=== PATIENT | female | born 1980 ===

== ENCOUNTER 2017-06-20 05:59 | Day surgery (SDC) | payer OTHER ==
[2017-05-17 13:46] VITALS: BMI 28.3
[2017-06-20] MEDS ORDERED: Bupivacaine-Epi 0.25%-1:200,000 PF Inj ONE (07:29)
[2017-06-20] MEDS ORDERED: ceFAZolin IV 2 gm in Dextrose 1 GM/50 ML BAG IVPB ONE (07:29)
[2017-06-20] MEDS ORDERED: Lidocaine 1% Inj (20ml) ONE (07:29)
[2017-06-20] MEDS ORDERED: Lactated Ringer's 1,000 ML IV ONE (08:07)
[2017-06-20] MEDS: HYDROmorphone 0.5 mg/0.5 ml ISec IVP PRN ×2 (10:22→10:55)
[2017-06-20] MEDS ORDERED: Oxycodone/Acetaminophen 5/325 mg Tab PO ONE (10:31)
--- NOTE | 2017-06-20 10:38 | PCM.SURG1 ---
Surgeon's Initial Post Op Note - Surgeon's Notes Surgeon: Julien Tile Power Shear Operator: PGY4, Devang HARPNA Type of Anesthesia: General Endo Pre-Operative Diagnosis: Umbilical hernia Operative Findings: Umbilical hernia Post-Operative Diagnosis: Umbilical hernia Operation Performed: Robotic assisted lap umbilical hernia repair with mesh Specimen/Specimens Removed: Hernia sac and contents Estimated Blood Loss: EBL {In ML}: 20 Blood Products Given: N/A Drains Used: No Drains Post-Op Condition: Good Date of Surgery/Procedure: 06/20/17 Time of Surgery/Procedure: 08:00
[2017-06-20 12:25] VITALS: BP 109/70; PULSE 68; RESP 18; TEMP 97.2; O2SAT 100
[2017-06-20] MEDS ORDERED: Acetaminophen-Codeine 300/30 mg Tab PO ONE (12:28)
--- NOTE | 2017-06-20 23:31 | OP ---
PROCEDURE DATE: 06/20/2017 PREOPERATIVE DIAGNOSIS: Umbilical hernia. POSTOPERATIVE DIAGNOSIS: Umbilical hernia. PROCEDURE: Robotic umbilical hernia repair with the mesh. SURGEON: Mic Victoria M.D. BACK FACER: MANPREET Funk and Elmer Pathak, PGY-4 resident. TYPE OF ANESTHESIA: General endotracheal tube anesthesia. ESTIMATED BLOOD LOSS: Around 10 mL. DRAINS: None. PATHOLOGY: Umbilical hernia with sac and content was sent for pathology. COMPLICATIONS: None. INTRAOPERATIVE FINDINGS: The patient had 2 x 2 cm umbilical hernia. DESCRIPTION OF PROCEDURE: On intraoperative steps, this 37-year-old female was diagnosed with umbilical hernia and the patient was consented for the robotic umbilical hernia repair with the mesh, brought to OR, placed supine on operating table. After induction of the anesthesia, abdomen was prepped and draped in usual sterile fashion. A left upper quadrant incision was made by using the Visiport technique. Peritoneal cavity was entered, pneumo was created. Three 8 mm robotic ports were placed in the left flank and the upper quadrant and the left lower quadrant and robot was brought in. Camera arm as well as arm 1 and arm 2 were docked, Umbilical hernial sac and content was reduced and defect was repaired with #1 Prolene V-Loc suture and 9 cm circular mesh was implanted after proper implantation of the mesh. The middle part of the mesh was tacked with a tacker, and the specimen was sent to the table for the pathology. All the instruments were taken out and the robot was undocked. All the ports were taken out under vision. Pneumo was deflated. All the incision sites were closed in one layer with 4-0 Monocryl and dry sterile dressing was applied. Patient tolerated procedure well. Count of the instruments was correct. There was no apparent complications. Mic Victoria MD JIMMY
[2017-06-21] MEDS ORDERED: Acetaminophen-Codeine 300/30 mg Tab PO STA (17:40)
== END 2017-06-20 13:30 | disposition home or self-care (01) ==
LOC: C.SDS 05:59
PROVIDERS: ATTEND Surgery Surgical Critical Care
DX: K42.9 Umbilical hernia without obstruction or gangrene (principal); F32.9 Major depressive disorder, single episode, unspecified; K60.2 Anal fissure, unspecified; R10.9 Unspecified abdominal pain; D17.5 Benign lipomatous neoplasm of intra-abdominal organs
CPT/HCPCS: 49652; 88302; J0690; J1170; J7120

== ENCOUNTER 2017-10-04 16:15 | Emergency (ER) | payer OTHER ==
[2017-10-04 16:16] VITALS: BMI 28.3
[2017-10-04 16:36] VITALS: BP 114/70; PULSE 75; RESP 20; TEMP 97.7; O2SAT 97
--- NOTE | 2017-10-04 16:57 | C.PDOC ---
History Of Present Illness 37 year old female presents to the ED for evaluation of sore throat and nonproductive cough which began 1 week ago. Patient denies fever and has no other associated symptoms at this time. 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 NO FEVER OTHER ASSOC SX EXAM NEG Time Seen by Provider: 10/04/17 16:43 Chief Complaint (Nursing): Cough, Cold, Congestion History Per: Patient History/Exam Limitations: no limitations Onset/Duration Of Symptoms: Days (1 week ) Current Symptoms Are (Timing): Still Present Location Of Pain: Throat Sick Contacts (Context): None Associated Symptoms: Sore Throat, Cough. denies: Fever, Chills, Sputum Ear Symptoms: Bilateral: None Additional History Per: Patient Past Medical History Reviewed: Historical Data, Nursing Documentation, Vital Signs Vital Signs: Last Vital Signs Temp 97.7 F 10/04/17 16:34 Pulse 75 10/04/17 16:34 Resp 20 10/04/17 16:34 BP 114/70 10/04/17 16:34 Pulse Ox 97 10/04/17 18:02 - Medical History PMH: Anxiety, Depression Surgical History: No Surg Hx - [facility] Procedures CLOSURE SKIN & SUBCUTANEOUS NEC (05/26/15) Family History: States: Unknown Family Hx - Social History Hx Tobacco Use: No Hx Alcohol Use: Yes Hx Substance Use: No - Immunization History Hx Tetanus Toxoid Vaccination: Yes Hx Influenza Vaccination: No Hx Pneumococcal Vaccination: No Review Of Systems Constitutional: Positive for: Fever ENT: Positive for: Throat Pain Respiratory: Positive for: Cough. Negative for: Sputum Physical Exam - Physical Exam Appears: Non-toxic, No Acute Distress Skin: Normal Color, Warm, Dry Head: Atraumatic, Normacephalic Eye(s): bilateral: Normal Inspection Ear(s): Bilateral: Normal Nose: Normal, No Discharge Oral Mucosa: Moist Throat: Normal, No Erythema, No Exudate Neck: Supple Chest: Symmetrical, No Deformity, No Tenderness Cardiovascular: Rhythm Regular, No Murmur Respiratory: Normal Breath Sounds, No Rales, No Rhonchi, No Wheezing Extremity: Normal ROM, Capillary Refill (less than 2 seconds ) Neurological/Psych: Oriented x3, Normal Speech, Normal Cognition Gait: Steady ED Course And Treatment O2 Sat by Pulse Oximetry: 97 Disposition Counseled Patient/Family Regarding: Diagnosis, Need For Followup, Rx Given - Disposition Referrals: YOUR,PMD [Other] Disposition: HOME/ ROUTINE Disposition Time: 16:56 Condition: GOOD Prescriptions: Benzonatate [Tessalon Perles] 200 mg PO TID PRN #15 sgl PRN Reason: Cough Instructions: Upper Respiratory Infection (ED) Forms: Lulu (Nepali) - Clinical Impression Clinical Impression: Upper respiratory infection - Scribe Statement The provider has reviewed the documentation as recorded by the Scribe (Sharee Wells) Provider Attestation: All medical record entries made by the Scribe were at my direction and personally dictated by me. I have reviewed the chart and agree that the record accurately reflects my personal performance of the history, physical exam, medical decision making, and the department course for this patient. I have also personally directed, reviewed, and agree with the discharge instructions and disposition.
== END 2017-10-04 17:18 | disposition home or self-care (01) ==
LOC: C.ER 16:15
DX: J06.9 Acute upper respiratory infection, unspecified (principal)

== ENCOUNTER 2017-10-08 17:31 | Emergency (ER) | payer OTHER ==
[2017-10-08 17:31] VITALS: BMI 28.3
--- NOTE | 2017-10-08 19:17 | C.PDOC ---
History Of Present Illness Ivon Raza is a 37 y/o female who presents to the ER complaining of a cough and myalgias for 10 days. Pt developed bilateral ear pain for the past 2-3 days. Patient also reports having tactile fever. No abdominal pain, nausea, vomiting, or diarrhea. No shortness of breath. Time Seen by Provider: 10/08/17 18:15 Chief Complaint (Nursing): Cough, Cold, Congestion History Per: Patient History/Exam Limitations: no limitations Onset/Duration Of Symptoms: Days (x 3) Current Symptoms Are (Timing): Still Present Past Medical History Reviewed: Historical Data, Nursing Documentation, Vital Signs Vital Signs: Last Vital Signs Temp 97.8 F 10/08/17 19:28 Pulse 70 10/08/17 19:28 Resp 20 10/08/17 19:28 BP 100/73 10/08/17 19:28 Pulse Ox 97 10/09/17 17:24 - Medical History PMH: Anxiety, Depression Surgical History: Hernia Repair Other Surgeries: Bladder sling, liposuction - [facility] Procedures CLOSURE SKIN & SUBCUTANEOUS NEC (05/26/15) Family History: States: Unknown Family Hx - Social History Hx Tobacco Use: No Hx Alcohol Use: Yes Hx Substance Use: No - Immunization History Hx Tetanus Toxoid Vaccination: (unk) Hx Influenza Vaccination: No Hx Pneumococcal Vaccination: (unk) Review Of Systems Constitutional: Positive for: Fever (tactile), Other (myalgia) ENT: Positive for: Ear Pain (B/L) Respiratory: Positive for: Cough. Negative for: Shortness of Breath Gastrointestinal: Negative for: Nausea, Vomiting, Abdominal Pain, Diarrhea Physical Exam - Physical Exam Appears: Non-toxic, No Acute Distress Skin: Normal Color, Warm, Dry Head: Atraumatic, Normacephalic Eye(s): bilateral: Normal Inspection, PERRL, EOMI Ear(s): Bilateral: TM Erythema Nose: No Discharge Oral Mucosa: Moist Throat: No Erythema, No Exudate Neck: Normal ROM, Supple Cardiovascular: Rhythm Regular, No Murmur Respiratory: Normal Breath Sounds, No Wheezing Gastrointestinal/Abdominal: Soft, No Tenderness Neurological/Psych: Oriented x3, Normal Speech, Normal Cognition ED Course And Treatment O2 Sat by Pulse Oximetry: 97 (RA) Pulse Ox Interpretation: Normal Medical Decision Making Medical Decision Making: Initial Plan: POC urine Motrin 600 mg PO Impression: Cough, myalgia, x 10 days with ear pain bilateral for last few days. with tactile fever. Will d/c with amoxicillin Disposition Counseled Patient/Family Regarding: Diagnosis, Need For Followup, Rx Given - Disposition Referrals: [facility] [Outside] Disposition: HOME/ ROUTINE Disposition Time: 19:18 Condition: STABLE Additional Instructions: [place] ibuprofeno para el dolor, john en el cuerpo, dolor de odos. [place] los antiboitcs melodie fueron recetados. Seguimiento en la clnica mdica la prxima semana. Sentinel llevar probablemente al menos otra semana hasta que se resuelva. Prescriptions: Amoxicillin [Amoxil 500 mg Cap] 500 mg PO TID #21 cap Instructions: Otitis Media (ED) Forms: [employer]erbee (Georgian) Print Language: GEORGIAN - Clinical Impression Clinical Impression: Otitis media, Upper respiratory infection - PA / TELEPHONE PLANT POWER OPERATOR / Resident Statement MD/DO has reviewed & agrees with the documentation as recorded. - Scribe Statement The provider has reviewed the documentation as recorded by the Scribe (Cary Shepard) All medical record entries made by the Scribe were at my direction and personally dictated by me. I have reviewed the chart and agree that the record accurately reflects my personal performance of the history, physical exam, medical decision making, and the department course for this patient. I have also personally directed, reviewed, and agree with the discharge instructions and disposition.
[2017-10-08 19:29] VITALS: BP 100/73; PULSE 70; RESP 20; TEMP 97.8
[2017-10-09 17:19] VITALS: O2SAT 97
== END 2017-10-08 19:29 | disposition home or self-care (01) ==
LOC: C.ER 17:31
DX: J06.9 Acute upper respiratory infection, unspecified (principal); H66.90 Otitis media, unspecified, unspecified ear

== ENCOUNTER 2017-11-07 05:53 | Day surgery (SDC) | payer OTHER ==
[2017-11-07] MEDS ORDERED: Midazolam 2 MG/2 ML VIAL ONE (09:04)
[2017-11-07] MEDS ORDERED: Propofol 10 mg/ml Inj (20 ML) ONE (09:05)
[2017-11-07] MEDS ORDERED: Lidocaine Hydrochloride 5 ML INJ ONE (09:12)
[2017-11-07 09:32] VITALS: RESP 16; O2SAT 100
[2017-11-07 10:00] VITALS: BP 119/76; PULSE 60; TEMP 98.3
== END 2017-11-07 11:30 | disposition home or self-care (01) ==
LOC: C.ENDO 05:53
PROVIDERS: ATTEND Internal Medicine
DX: K21.9 Gastro-esophageal reflux disease without esophagitis (principal); K29.50 Unspecified chronic gastritis without bleeding; K44.9 Diaphragmatic hernia without obstruction or gangrene; B96.81 Helicobacter pylori [H. pylori] as the cause of diseases classified elsewhere
CPT/HCPCS: 43239; 84703; 88305; J2250; J2704

== ENCOUNTER 2017-11-14 09:15 | Day surgery (SDC) | payer OTHER ==
[2017-11-10 14:02] VITALS: BMI 31.1
[~2017-11-14 09:15] MED LIST: Lidocaine 1%/Epinephrine 1:100000 30 ml vial IJ ONE
[2017-11-14] MEDS ORDERED: Lactated Ringer's 1,000 ML IV ONE ×2 (13:25)
[2017-11-14] MEDS ORDERED: Bupivacaine HCl 0.25% PF (10 ml) Inj ONE (15:56)
[2017-11-14] MEDS ORDERED: Midazolam 2 MG/2 ML VIAL ONE (16:18)
[2017-11-14] MEDS ORDERED: Propofol 10 mg/ml Inj (20 ML) ONE (16:19)
[2017-11-14] MEDS ORDERED: Succinylcholine Chloride 20 mg/ml Syr (5 ml) IV ONE (16:22)
[2017-11-14] MEDS ORDERED: ceFAZolin IV 2 gm in Dextrose 2 GM/50 ML BAG IVPB ONE (16:22)
[2017-11-14] MEDS ORDERED: Rocuronium 10 mg/ml (5 ml) ONE (16:22)
[2017-11-14] MEDS ORDERED: Neostigmine Methylsulfate 3mg/3ml Syringe IV ONE (16:59)
[2017-11-14] MEDS ORDERED: Morphine 4 MG/ML VIAL ONE (17:19)
[2017-11-14] MEDS ORDERED: Oxycodone/Acetaminophen 5/325 mg Tab PO PRN (18:05)
--- NOTE | 2017-11-14 18:05 | PCM.SURG1 ---
Surgeon's Initial Post Op Note - Surgeon's Notes Surgeon: Dr. Victoria Computer Systems Architect: Mark PGY1 Type of Anesthesia: General Endo Anesthesia Administered By: Dr. Moreira Pre-Operative Diagnosis: Three column Hemorroids, anal fissure Operative Findings: see operative report Post-Operative Diagnosis: Three column Hemorroids, anal fissure Operation Performed: Three column Hemorroidectomy, fissurectomy, and internal scphincterotomy Specimen/Specimens Removed: three column hemmorhoids Estimated Blood Loss: EBL {In ML}: 50 Blood Products Given: N/A Drains Used: No Drains Post-Op Condition: Good Date of Surgery/Procedure: 11/14/17 Time of Surgery/Procedure: 16:00
[2017-11-14 18:55] VITALS: O2SAT 100
[2017-11-14 20:39] VITALS: BP 123/76; PULSE 97; RESP 13; TEMP 98.5
--- NOTE | 2017-11-15 08:45 | OP ---
PROCEDURE DATE: 11/14/2017 PREOPERATIVE DIAGNOSES: 1. Anal fissure posteriorly. 2. Grade 3 bleeding hemorrhoid. POSTOPERATIVE DIAGNOSES: Grade 3 bleeding hemorrhoid of left lateral, right anterior and right posterior and anal fissure. PROCEDURE: 1. The three-column hemorrhoidectomy. 2. Fissurectomy. 3. Internal sphincterotomy. SURGEON: The procedure was done by Mic carballo MD. SOLVENT PLANT TREATER: Kuldeep Sauer, PGY-1 resident and CARYN Funk. TYPE OF ANESTHESIA: General endotracheal tube anesthesia. ESTIMATED BLOOD LOSS: Around 50 mL. DRAIN: None. PATHOLOGY: The left lateral, right anterior and right posterior hemorrhoid were sent for the pathology. COMPLICATIONS: None. INTRAOPERATIVE FINDINGS: The patient had large left lateral and right anterior and right posterior hemorrhoids and the patient also had redundant skin that was excised. DESCRIPTION OF PROCEDURE: On intraoperative steps, this is a 37-year-old female who was diagnosed with grade 3 hemorrhoid with on and off bleeding and the patient also has a posterior anal fissure and the patient was consented for the hemorrhoidectomy and fissurectomy with internal sphincterotomy. Brought to the OR, placed supine on the patient's bed. After induction of the anesthesia, the patient was placed in a prone Jackknife position and examination under anesthesia was done. The patient was found to have a posterior anal fissure and the patient also had large left lateral as well as right anterior and right posterior hemorrhoid and there was a grade 2 left anterior hemorrhoid and elliptical incision was made surrounding the left lateral and the right anterior hemorrhoid and the both hemorrhoids were excised together and the pedicle was ligated with the 0 Vicryl and the mucosa was approximated with a 2-0 Vicryl sutures and now an elliptical incision was made surrounding the right posterior hemorrhoid and the hemorrhoid was completely excised, pedicle was ligated and wound was closed with 0 Vicryl. The internal sphincter was ligated on the right lateral side and fissure was excised with the posterior hemorrhoid and the wound was closed. Dry sterile dressing was applied. The packing was placed and the local anesthesia was injected. The patient tolerated the procedure well. Count of the instruments and gauze was correct. There was no apparent complication. The patient was extubated in the OR and sent to the Postanesthesia Care Unit in stable condition. Mic Victoria MD [facility] # [id number]
== END 2017-11-14 21:00 | disposition home or self-care (01) ==
LOC: C.SDS 09:15
PROVIDERS: ATTEND Surgery Surgical Critical Care
DX: K60.2 Anal fissure, unspecified (principal); K64.2 Third degree hemorrhoids
CPT/HCPCS: 46261; J0690; J1100; J1170; J2001; J2250; J2270; J2405; J2704; J2710; J3010; J7120

== ENCOUNTER 2018-06-17 13:37 | Emergency (ER) | payer OTHER ==
[2018-06-17 13:37] VITALS: BMI 31.1
[2018-06-17 14:45] LABS: SQUAMOUS EPITHIAL 3 /hpf (0-5); URINE BACTERIA RARE (<OCC); URINE BILIRUBIN NEGATIVE (NEGATIVE); URINE BLOOD NEGATIVE (NEGATIVE); URINE CLARITY Clear (Clear); URINE COLOR Yellow (YELLOW); URINE GLUCOSE (UA) NORMAL (Normal); URINE LEUKOCYTE ESTERASE NEG Leu/uL (Negative); URINE PROTEIN NEGATIVE (NEGATIVE); URINE UROBILINOGEN NORMAL mg/dL (0.2-1.0)
[2018-06-17 15:11] VITALS: BP 111/74; PULSE 76; RESP 18; TEMP 98.5; O2SAT 99
--- NOTE | 2018-06-17 15:21 | C.PDOC ---
Chief Complaint (Nursing): Abdominal Pain Past Medical History Vital Signs: Last Vital Signs Temp 98.5 F 06/17/18 15:10 Pulse 76 06/17/18 15:10 Resp 18 06/17/18 15:10 BP 111/74 06/17/18 15:10 Pulse Ox 99 06/17/18 15:10 - Medical History PMH: Anxiety, Depression Denies: Chronic Kidney Disease Surgical History: Endoscopy, Hernia Repair - [facility] Procedures CLOSURE SKIN & SUBCUTANEOUS NEC (05/26/15) Family History: States: Unknown Family Hx - Social History Hx Tobacco Use: No Hx Alcohol Use: Yes Hx Substance Use: No - Immunization History Hx Tetanus Toxoid Vaccination: (unk) Hx Influenza Vaccination: No Hx Pneumococcal Vaccination: (unk) ED Course And Treatment O2 Sat by Pulse Oximetry: 99 Disposition Counseled Patient/Family Regarding: Studies Performed, Diagnosis, Need For Followup - Disposition Disposition: HOME/ ROUTINE Disposition Time: 15:17 Condition: GOOD Additional Instructions: Por favor, sami un seguimiento con live mdico de atencin primaria y con live ginec logo la prxima semana. Supriya ms lquidos y coma alimentos suaves. Regrese a la anne de emergencias por cualquier sntoma peor. Forms: Gen Discharge Inst Vatican Citizen, [facility] ([place] Citizen) - Clinical Impression Clinical Impression: Gastroenteritis
--- NOTE | 2018-06-17 15:24 | C.PDOC ---
History Of Present Illness 38 year old female comes in with daughter to the ER as a patient with multiple complaints. She complains of nausea, vomiting, and soft stool since 2 days ago. Last vomiting episode was yesterday. Patient also complains of abdominal pain and dysuria but denies any fever, chills, or back pain. She currently does not feel nauseous and is tolerating PO. LMP was April; however, it only lasted a day. pt concerned she may be . Chief Complaint (Nursing): Abdominal Pain History Per: Patient History/Exam Limitations: no limitations Onset/Duration Of Symptoms: Days Current Symptoms Are (Timing): Still Present Past Medical History Reviewed: Historical Data, Nursing Documentation, Vital Signs Vital Signs: Last Vital Signs Temp 98.5 F 06/17/18 15:10 Pulse 76 06/17/18 15:10 Resp 18 06/17/18 15:10 BP 111/74 06/17/18 15:10 Pulse Ox 99 06/17/18 21:44 - Medical History PMH: Anxiety, Depression Denies: Chronic Kidney Disease Surgical History: Endoscopy, Hernia Repair - [facility] Procedures CLOSURE SKIN & SUBCUTANEOUS NEC (05/26/15) Family History: States: No Known Family Hx - Social History Hx Tobacco Use: No Hx Alcohol Use: Yes Hx Substance Use: No - Immunization History Hx Tetanus Toxoid Vaccination: (unk) Hx Influenza Vaccination: No Hx Pneumococcal Vaccination: (unk) Review Of Systems Constitutional: Negative for: Fever, Chills Cardiovascular: Negative for: Chest Pain Respiratory: Negative for: Shortness of Breath Gastrointestinal: Positive for: Nausea, Vomiting, Abdominal Pain, Other (Soft stool) Genitourinary: Positive for: Dysuria Musculoskeletal: Negative for: Back Pain Neurological: Negative for: Weakness, Numbness Physical Exam - Physical Exam Appears: Well, Non-toxic, No Acute Distress Skin: Warm, Dry Head: Atraumatic, Normacephalic Eye(s): bilateral: Normal Inspection Oral Mucosa: Moist Neck: Supple Chest: No Deformity, No Tenderness Cardiovascular: Rhythm Regular, No Murmur Respiratory: Normal Breath Sounds, No Rales, No Rhonchi, No Wheezing Gastrointestinal/Abdominal: Bowel Sounds, Soft, No Tenderness, No Distention, No Guarding, No Rebound Back: No CVA Tenderness Neurological/Psych: Oriented x3, Normal Speech ED Course And Treatment O2 Sat by Pulse Oximetry: 99 (RA) Pulse Ox Interpretation: Normal Medical Decision Making Medical Decision Making: Plan: -Urinalysis -Urine Disposition - Disposition Disposition: HOME/ ROUTINE Disposition Time: 15:25 Condition: GOOD Additional Instructions: Por favor, sami un seguimiento con live mdico de atencin primaria y con live ginec logo la prxima semana. Supriya ms lquidos y coma alimentos suaves. Regrese a la anne de emergencias por cualquier sntoma peor. Instructions: Gastroenteritis (DC) Forms: Gen Discharge Inst Gibraltarian, [employer] (Gibraltarian) Print Language: TAJIK - Clinical Impression Clinical Impression: Gastroenteritis - PA / BUNCH MAKER / Resident Statement MD/DO has reviewed & agrees with the documentation as recorded. - Scribe Statement The provider has reviewed the documentation as recorded by the Scribe Maria Guadalupe Gibbons All medical record entries made by the Scribe were at my direction and personally dictated by me. I have reviewed the chart and agree that the record accurately reflects my personal performance of the history, physical exam, medical decision making, and the department course for this patient. I have also personally directed, reviewed, and agree with the discharge instructions and disposition.
== END 2018-06-17 15:29 | disposition home or self-care (01) ==
LOC: C.ER 13:37
DX: K52.9 Noninfective gastroenteritis and colitis, unspecified (principal)

== ENCOUNTER 2018-07-26 09:14 | Emergency (ER) | payer MEDICAID, OTHER ==
[2018-07-26 09:14] VITALS: BMI 31.1
[2018-07-26 09:23] VITALS: TEMP 98.8
[2018-07-26] MEDS ORDERED: Lidocaine Hydrochloride 5 ML INJ ONE (09:56)
--- NOTE | 2018-07-26 10:24 | C.PDOC ---
History Of Present Illness 38 y/o female currently 1 month presents to ED with c/o swelling and tenderness on 6'oclock area of vagina intermittently for 2 years. Patient states she was seen at [facility] where she found out of 1 month ago. Patient denies fever, chills, dysuria, hematuria or any other complaints at this time. Time Seen by Provider: 07/26/18 09:21 Chief Complaint (Nursing): Abnormal Skin Integrity History Per: Patient History/Exam Limitations: no limitations Onset/Duration Of Symptoms: Days Current Symptoms Are (Timing): Still Present Past Medical History Reviewed: Historical Data, Nursing Documentation, Vital Signs Vital Signs: Last Vital Signs Temp 98.8 F 07/26/18 09:23 Pulse 86 07/26/18 09:23 Resp 18 07/26/18 09:23 BP 117/76 07/26/18 09:23 Pulse Ox 100 07/26/18 09:23 - Medical History PMH: Anxiety, Depression Surgical History: Endoscopy, Hernia Repair - [facility] Procedures CLOSURE SKIN & SUBCUTANEOUS NEC (05/26/15) Family History: States: No Known Family Hx - Social History Hx Tobacco Use: No Hx Alcohol Use: Yes Hx Substance Use: No - Immunization History Hx Tetanus Toxoid Vaccination: (unk) Hx Influenza Vaccination: No Hx Pneumococcal Vaccination: (unk) Review Of Systems Constitutional: Negative for: Fever, Chills Gastrointestinal: Negative for: Nausea, Vomiting, Abdominal Pain Genitourinary: Positive for: Other (vagina pain). Negative for: Dysuria, Hematuria, Vaginal Discharge, Vaginal Bleeding Physical Exam - Physical Exam Appears: Non-toxic, No Acute Distress Skin: Warm, Dry, No Rash Head: Atraumatic, Normacephalic Eye(s): bilateral: Normal Inspection Oral Mucosa: Moist Pelvic: No Vaginal Bleeding, No Vaginal Discharge, Other (small sized lump on 6'oclock portion of vagina tender to palpation with mild fluctuance) Neurological/Psych: Oriented x3, Normal Speech, Normal Cognition ED Course And Treatment O2 Sat by Pulse Oximetry: 100 (RA) Pulse Ox Interpretation: Normal - Incision & Drainage Of Abscess Anesthesia: Lidocaine 1% Prep Used: Sterile Water, Betadine Procedure: Incised W/Scalpel Blade#: (11), Drained Pus (3mL), Packed W/Gauze, Cultures Obtained And Sent To Lab Disposition Counseled Patient/Family Regarding: Diagnosis, Need For Followup, Rx Given - Disposition Referrals: [facility] [Outside] Disposition: HOME/ ROUTINE Disposition Time: 10:22 Condition: STABLE Prescriptions: Ibuprofen [Motrin] 600 mg PO TID #15 tab Instructions: Bartholin's Gland Cyst Forms: [facility] (Kittitian), Gen Discharge Inst Kittitian Print Language: SLOVAK - POA Present On Arrival: None - Clinical Impression Clinical Impression: Bartholin's gland abscess - Scribe Statement The provider has reviewed the documentation as recorded by the Miltonibrubio Chen All medical record entries made by the Miltonibrbuio were at my direction and personally dictated by me. I have reviewed the chart and agree that the record accurately reflects my personal performance of the history, physical exam, medical decision making, and the department course for this patient. I have also personally directed, reviewed, and agree with the discharge instructions and disposition.
[2018-07-26 10:36] VITALS: BP 121/79; PULSE 78; RESP 16
[2018-07-26 10:38] VITALS: O2SAT 100
== END 2018-07-26 10:35 | disposition home or self-care (01) ==
LOC: C.ER 09:14
DX: O23.591 Infection of other part of genital tract in pregnancy, first trimester (principal); Z3A.00 Weeks of gestation of pregnancy not specified

== ENCOUNTER 2018-08-19 17:48 | Emergency (ER) | payer MEDICAID ==
[2018-08-19 17:48] VITALS: BMI 31.1
[2018-08-19 17:55] VITALS: TEMP 99.4; O2SAT 98
[2018-08-19] MEDS ORDERED: Sodium Chloride 0.9% 1,000 ML IV ONE (17:58)
[2018-08-19 18:22] LABS: BASO % 0.3 % (0.0-2.0); EOS # 0.1 K/uL (0.0-0.7); EOS % 1.1 % (0.0-4.0); HEMOGLOBIN 12.9 g/dL (11.0-16.0); LYMPH # 2.5 K/uL (1.0-4.3); LYMPH % 22.4 % (20.0-40.0); MEAN CELL VOLUME 87.4 fL (81.0-99.0); MEAN CORPUSCULAR HEMOGLOBIN 29.4 pg (27.0-31.0); MEAN CORPUSCULAR HGB CONC 33.6 g/dL (33.0-37.0); MEAN PLATELET VOLUME 8.6 fL (7.2-11.7); MONO # 0.6 K/uL (0.0-0.8); MONO % 5.7 % (0.0-10.0); NEUT # 7.8 K/uL (1.8-7.0); NEUT % 70.5 % (50.0-75.0); NRBC % 0.1 % (0.0-2.0); RBC 4.38 Mil/uL (3.80-5.20); RED CELL DISTRIBUTION WIDTH 12.8 % (11.5-14.5)
[2018-08-19 18:28] LABS: SQUAMOUS EPITHIAL 18 /hpf (0-5); URINE BACTERIA MANY (<OCC); URINE BILIRUBIN NEGATIVE (NEGATIVE); URINE BLOOD 3+ (NEGATIVE); URINE CLARITY Hazy (Clear); URINE COLOR Amber (YELLOW); URINE GLUCOSE (UA) NORMAL (Normal); URINE LEUKOCYTE ESTERASE 3+ Leu/uL (Negative); URINE PROTEIN 2+ mg/dL (NEGATIVE); URINE UROBILINOGEN NORMAL mg/dL (0.2-1.0)
[2018-08-19 18:36] LABS: ALB/GLOB RATIO 1.2 (1.0-2.1); ALBUMIN 4.3 g/dL (3.5-5.0); ALT/SGPT 17 U/L (9-52); AST/SGOT 16 U/L (14-36); BLOOD UREA NITROGEN 16 mg/dL (7-17); CALCIUM 9.4 mg/dl (8.6-10.4); GFR NON-AFRICAN AMERICAN > 60
--- NOTE | 2018-08-19 19:38 | C.PDOC ---
History Of Present Illness 38 y/o female pt presents to the ER with c/o scant vaginal bleeding last night. Associated sx includes mild lower abdominal pain and mild nausea. Pt reports she received an US and it was "normal". Pt denies vomiting, fever, chi lls and cough. LMP 06/19. Time Seen by Provider: 08/19/18 17:56 Chief Complaint (Nursing): Female Genitourinary History Per: Patient History/Exam Limitations: no limitations Onset/Duration Of Symptoms: Days (x1) Current Symptoms Are (Timing): Still Present Past Medical History Reviewed: Historical Data, Nursing Documentation, Vital Signs Vital Signs: Last Vital Signs Temp 99.4 F 08/19/18 17:51 Pulse 83 08/19/18 17:51 Resp 18 08/19/18 17:51 BP 107/70 08/19/18 17:51 Pulse Ox 98 08/19/18 17:51 - Medical History PMH: Anxiety, Depression Surgical History: Endoscopy, Hernia Repair - [facility] Procedures CLOSURE SKIN & SUBCUTANEOUS NEC (05/26/15) Family History: States: Unknown Family Hx - Social History Hx Tobacco Use: No Hx Alcohol Use: No Hx Substance Use: No - Immunization History Hx Tetanus Toxoid Vaccination: No Hx Influenza Vaccination: No Hx Pneumococcal Vaccination: No Review Of Systems Except As Marked, All Systems Reviewed And Found Negative. Constitutional: Negative for: Fever, Chills Respiratory: Negative for: Cough Gastrointestinal: Positive for: Nausea, Abdominal Pain (low). Negative for: Vomiting Genitourinary: Positive for: Vaginal Bleeding (scant) Physical Exam - Physical Exam Appears: Non-toxic, No Acute Distress Skin: Normal Color, Warm, Dry Head: Normacephalic Eye(s): bilateral: Normal Inspection, EOMI Chest: Symmetrical, No Deformity Cardiovascular: Rhythm Regular Respiratory: Normal Breath Sounds Gastrointestinal/Abdominal: Soft, No Tenderness Back: No CVA Tenderness Pelvic: Other (deferred) Extremity: Normal ROM (x4) Neurological/Psych: Oriented x3 Gait: Steady ED Course And Treatment - Laboratory Results Result Diagrams: 08/19/18 18:17 08/19/18 18:17 O2 Sat by Pulse Oximetry: 98 (RA) Pulse Ox Interpretation: Normal - CT Scan/US transvaginal Other Rad Studies (CT/US): Read By Radiologist, Radiology Report Reviewed CT/US Interpretation: Name:KIN CRYSTAL Exam Date:Aug 19, 2018 7:27:15 PM EDT. Modality Type:SD\\US\\NE\\SR. Description:US - OB 1ST TRIMESTER. Gender:F Laterality:Not applicable. :76 Referring Physician:Fam Cowan (). EXAM: US Obstetrical, Complete <14 weeks. CLINICAL HISTORY: with vaginal bleeding. TECHNIQUE: Transvaginal and transabdominal imaging of the maternal pelvis and a <14 week gestation with image documentation. COMPARISON: None provided. FINDINGS: GESTATION: 13 x 7 x 7 mm. UTERUS: Unremarkable. No myometrial mass. CERVIX: Closed. Unremarkable. OVARIES: Unremarkable. No mass. FREE FLUID: No free fluid. MISCELLANEOUS: Somewhat angulated gestational sac is seen likely early. No pole is identified or detected heartbeat. Correlated with followup ultrasound and quantitative beta hCG and or as indicated. Incidental corpus luteal cyst likely on the left. IMPRESSION: 1. Somewhat angulated gestational sac is seen likely very early gestation. 2. No pole is identified or detected heartbeat. 3. Correlated with followup ultrasound and quantitative beta hCG and or as indicated. 4. Incidental corpus luteal cyst likely on the left. Medical Decision Making Medical Decision Making: Impression: scant vaginal bleeding with lower abdominal pain and nausea Plans: -- chem labs -- blood work -- IV fluids -- UCX -- UA -- OB transvaginal US Reassess: Patient is resting comfortably, does not have active vaginal bleeding, denies any chest pain, shortness of breath, or lightheadedness. Patient was not orthostatic in ED. Patient was instructed to follow up with her KILN PULLER in 1-2 days, and to return to ED for worsening symptoms. Disposition - [facility] - Disposition: HOME/ ROUTINE Disposition Time: 20:45 Condition: GOOD Additional Instructions: BONILLA SANDERSON, thank you for letting us take care of you today. Your provider was Fam Cowan DO and you were treated for VAGINAL BLEEDING. The emergency medical care you received today was directed at your acute symptoms. If you were prescribed any medication, please fill it and take as directed. It may take several days for your symptoms to resolve. Return to the Emergency Department if your symptoms worsen, do not improve, or if you have any other problems. Please contact your doctor or call one of the physicians/clinics you have been referred to that are listed on the Patient Visit Information form that is included in your discharge packet. Bring any paperwork you were given at discharge with you along with any medications you are taking to your follow up visit. Our treatment cannot replace ongoing medical care by a primary care provider outside of the emergency department. Thank you for allowing the [facility] team to be part of your care today. Your hormone level here in the emergency room is 991. Follow up with your KILN PULLER doctor in 2-3 days for re-evaluation and further management. BONILLA SANDERSON, daniela por dejarnos cuidar de christi de santiago. Vázquez proveedor fue Fam Passafaro DO y fue atendido por VAGINAL BLEEDING. La atencin mdica de emergencia que recibi hoy se dirigi a dorothy sntomas agudos. Si le recetaron algn medicamento, llnelo y tmelo segn las indicaciones. Los sntomas pueden tardar varios high en resolverse. Regrese al Departamento de Emergencias si dorothy sntomas empeoran, no mejoran o si tiene otros problemas. Comunquese con vázquez mdico o llame a carlyn de los mdicos / clnicas a los que saul s mary referido que figuran en el formulario de Informacin de visita al paciente que se incluye en vázquez paquete de damián. Lleve con christi a vázquez consulta de seguimiento toda la documentacin que recibi del damián junto con los medicamentos que est tomando. Nuestro tratamiento no puede reemplazar la atencin mdica continua por parte de un proveedor de atencin primaria fuera del departamento de emergencias. Daniela por permitir que el equipo de [facility] sea parte de vázquez atencin hoy. Vázquez nivel de hormonas aqu en la anne de emergencias es 991. Nima un seguimiento con vázquez mdico obstetra / gineclogo en 2 o 3 high para dwight reevaluacin y manejo adicional. Prescriptions: Cephalexin [cephalexin] 500 mg PO Q8 #15 cap Vit No.126/Iron/Folic [Classic Tablet] 1 each PO DAILY #30 tablet Instructions: Urinary Tract Infection, Adult (DC), Bleeding With (DC) Forms: Gen Discharge Inst Ug[place]an, [employer] (Faroese), [employer] (Ugandan), Work Excuse Print Language: SWEDISH - Clinical Impression Clinical Impression: Threatened , UTI (urinary tract infection) - Scribe Statement The provider has reviewed the documentation as recorded by the Scribe Ivey Do Provider Attestation: All medical record entries made by the Scribe were at my direction and personally dictated by me. I have reviewed the chart and agree that the record accurately reflects my personal performance of the history, physical exam, medical decision making, and the department course for this patient. I have also personally directed, reviewed, and agree with the discharge instructions and disposition.
[2018-08-19 21:21] VITALS: BP 132/74; PULSE 70; RESP 16
--- NOTE | 2018-08-20 14:09 | US ---
Date of service: 08/19/2018 HISTORY: vaginal bleeding; last which appears reported 06/19/2018 suggesting gestation of 8 weeks 5 days. COMPARISON: None available. TECHNIQUE: Transabdominal and transvaginal pelvic ultrasound was performed with longitudinal and transverse images submitted for interpretation. FINDINGS: UTERUS: Measures 9.1 x 6.0 x 6.6 cm. Uterus is anteverted with nonfocal myometrial echotexture. No fibroid or other mass lesion seen. ENDOMETRIUM: Within the endometrial cavity is a fluid collection suggestive of a gestational sac with mean sac diameter is 0.9 cm. A small yolk sac is identified but no pole is appreciable at this time. Endometrium is thickened to 13.0 mm. Developing digital reaction seen surrounding the gestational sac. Consider intrauterine gestation of less than 5 weeks estimated gestational age versus failure of gestation given discrepancy with LMP derived dates. CERVIX: No cervical abnormality identified. RIGHT OVARY: Measures 2.1 x 1.9 x 2.3 cm. No solid mass. Normal flow. LEFT OVARY: Measures 2.9 x 2.4 x 3.1 cm. No solid mass. Normal flow. 1.7 cm cyst is seen in the left ovary potentially reflecting corpus luteum cyst. FREE FLUID: No significant free fluid noted. OTHER FINDINGS: None. IMPRESSION: Potential early intrauterine gestation less than 5 weeks estimated gestational age, however, failure of gestation is not excluded. Serial quantitative beta HCG analysis is advised as well as follow-up transvaginal pelvic ultrasound in 1 week. Probable corpus luteum cyst left ovary. Concordant preliminary report from [employer], 08/19/2018.
== END 2018-08-19 21:20 | disposition home or self-care (01) ==
LOC: C.ER 17:48
DX: O20.0 Threatened abortion (principal); O23.41 Unspecified infection of urinary tract in pregnancy, first trimester; Z3A.01 Less than 8 weeks gestation of pregnancy
CPT/HCPCS: 76817; 80053; 81001; 84702; 85025; 87086; 96360; 99284; J7030